=== PATIENT | male | born 1975 | race Caucasian/White ===

== ENCOUNTER 2023-05-06 17:41 | Emergency (ER) | payer MEDICAID ==
[2023-05-06 17:53] VITALS: BP 135/85
--- NOTE | 2023-05-06 18:01 | ED Physician Documentation ---
History of Present Illness - Stated complaint Stated Complaint: EAR/EYE/THROAT PX - Chief complaint Chief Complaint: General - History obtained from History obtained from: Patient - Additonal information Additional information: 47-year-old gentleman presents with chief complaint of parasites coming out of his skin for the last year. No international travel. He has seen his doctor and they trialed ivermectin without relief. 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 PD PAST MEDICAL HISTORY - Past Medical History Cardiovascular: None Respiratory: None Endocrine/Autoimmune: None GI: None : None HEENT: None Psych: None Musculoskeletal: Other Derm: None - Past Surgical History Past Surgical History: No Ortho: Other - Present Medications Home Medications: Ambulatory Orders Medication Instructions Recorded Confirmed Albendazole 2 tab PO ONCE #4 tablet 05/06/23 - Allergies Allergies/Adverse Reactions: Allergies Allergy/AdvReac Type Severity Reaction Status Date / Time No Known Drug Allergies Allergy Verified 05/06/23 17:44 - Social History Does the pt smoke?: No Smoking Status: Never smoker Does the pt drink ETOH?: No Does the pt have substance abuse?: No PD ED PE NORMAL - Vitals Vital signs reviewed: Yes - General General: Alert and oriented X 3, No acute distress - Back Back: No CVA TTP, No spinal TTP - Derm Derm: Other (I do not see any abnormality) - Neuro Neuro: Alert and oriented X 3, Normal speech Results - Vitals Vitals: Vital Signs - 24 hr 05/06/23 17:44 Temperature 36.5 C Heart Rate 95 Respiratory 16 Rate Blood Pressure 135/85 H O2 Saturation 99 Oxygen O2 Source Room air PD Medical Decision Making - ED course Complexity details: considered differential (Delusional versus real para cytosis. We will trial albendazole given previously no help with ivermectin. Referred to Derm for evaluation.) Departure - Departure Disposition: 01 Home, Self Care Clinical Impression: Parasite infection Condition: Good Record reviewed to determine appropriate education?: Yes Follow-Up: [facility] [Provider Group] Prescriptions: Albendazole 2 tab PO ONCE #4 tablet Comments: Although I do not see any specific parasites today, I do believe that you have them and I am trying a different medication that I hope will help. Follow-up with your doctor for new referral to dermatology with different ICD 10 code. Return for new or worsening symptoms. Discharge Date/Time: 05/06/23 18:54
== END 2023-05-06 18:54 | disposition home or self-care (01) ==
LOC: ED 17:41
DX: B89 Unspecified parasitic disease (principal)
CPT/HCPCS: 99282; 99283

== ENCOUNTER 2024-03-28 17:29 | Emergency (ER) | payer MEDICAID ==
[2024-03-28 17:44] VITALS: BP 143/86; O2SAT 96
== END 2024-03-28 20:08 | disposition left against medical advice (07) ==
LOC: ED 17:29
DX: Z53.21 Procedure and treatment not carried out due to patient leaving prior to being seen by health care provider (principal)